=== PATIENT | male | born 1955 | race Caucasian/White ===

== ENCOUNTER → 2021-06-19 11:10 | Outpatient (CLI) | payer OTHER, SELFPAY ==
--- NOTE | 2021-06-19 | DI.RAD.S_ITS ---
PROCEDURE: XR CHEST 2V INDICATIONS: SHORTNESS OF BREATH TECHNIQUE: 2 views of the chest were acquired. COMPARISON: None. FINDINGS: Surgical changes and devices: None. Lungs and pleura: Lungs are clear. No pleural effusions or pneumothorax. Mediastinum: Mediastinal contours are normal. Heart size is normal. Bones and chest wall: No suspicious bony abnormalities. Soft tissues appear unremarkable. IMPRESSION: No source for shortness of breath identified radiographically. Dictated by: Cleveland Pascual RRA Interpreted: Bayron Salazar MD on 06/19/2021 at 11:44 Transcribed by: STANFORD on 06/19/2021 at 11:45 Approved by: Bayron Salazar M.D. on 06/19/2021 at 12:40
== END ==
PROVIDERS: Referring Provider Physician Assistant; Visit Provider Physician Assistant
DX: R06.02 Shortness of breath (principal)
CPT/HCPCS: 71046

== ENCOUNTER → 2024-05-03 16:16 | Outpatient (CLI) | payer MEDICARE, SELFPAY | LOC: RESP 16:16 | PROVIDERS: PCP Family Medicine; Referring Provider Family Medicine; Visit Provider Family Medicine | DX: R06.09 Other forms of dyspnea (principal); J98.8 Other specified respiratory disorders; R94.2 Abnormal results of pulmonary function studies | CPT/HCPCS: 94060; 94726; 94729 ==

== ENCOUNTER → 2024-09-23 11:48 | Outpatient (CLI) | payer MEDICARE, SELFPAY ==
--- NOTE | 2024-09-23 11:50 | DI.CT.S_ITS ---
PROCEDURE: CT CHEST W CON INDICATIONS: Other specified cough TECHNIQUE: After the administration of intravenous contrast, 5 mm thick sections acquired from the pulmonary apices to the posterior costophrenic angles. 1 mm axial lung, 5 mm thick coronal and sagittal reformats and 7 mm axial MIP were acquired. For radiation dose reduction, the following was used: automated exposure control, adjustment of mA and/or kV according to patient size. COMPARISON: None. FINDINGS: Image quality: Diagnostic. Lower Neck: No enlarged lymph nodes. Thyroid: No thyroid nodules which require sonographic follow up, per consensus guidelines. Axillae: No enlarged lymph nodes. Chest Wall: Unremarkable. Bones: Unremarkable. Lungs and Pleura: No pneumothorax or pleural effusions. No consolidation or suspicious nodules. Tiny perifissural nodule in the right middle lobe, likely an intrapulmonary lymph node. Heart: Heart size is normal. Moderate coronary artery calcifications. No pericardial effusion. Thoracic Vessels: The aorta and pulmonary arteries demonstrate normal size. Atherosclerotic vascular calcifications. Mediastinum and Lali: No enlarged lymph nodes. Esophagus: Wall appears mildly thickened diffusely. Moderate hiatal hernia. Upper Abdomen: Visualized upper abdomen solid organs and bowel loops appear normal. IMPRESSION: 1. No acute pulmonary process. No cause for patient's symptoms is identified. 2. Moderate hiatal hernia. Esophageal wall appears mildly thickened diffusely, correlate for esophagitis. 3. Moderate coronary artery calcifications. Dictated by: Mookie Alamo M.D. on 09/24/2024 at 14:46 Approved by: Mookie Alamo M.D. on 09/24/2024 at 14:49
[2024-09-23 12:32] LABS: Estimated Glomerular Filt Rate > 60 mL/min (>60)
== END ==
LOC: CT 11:50
PROVIDERS: PCP Family Medicine; Referring Provider Nurse Practitioner Family; Visit Provider Nurse Practitioner Family
DX: K44.9 Diaphragmatic hernia without obstruction or gangrene (principal); I25.10 Atherosclerotic heart disease of native coronary artery without angina pectoris; R06.4 Hyperventilation; R05.8 Other specified cough
CPT/HCPCS: 36415; 71260; 82565; Q9967